=== PATIENT | female | born 1995 | race Caucasian/White ===

== ENCOUNTER → 2016-08-06 | Outpatient (CLI) | payer OTHER ==
[2016-08-06 13:06] LABS: CHLAM PCR DETECTED (NOT DETECT)
== END ==
LOC: LAB 11:18
PROVIDERS: ATTEND Nurse Practitioner Acute Care
DX: N89.8 Other specified noninflammatory disorders of vagina (principal)
CPT/HCPCS: 87210; 87491; 87591

== ENCOUNTER → 2017-04-03 | Outpatient (CLI) | payer SELFPAY ==
[2017-04-03 12:17] LABS: CHLAM PCR DETECTED (NOT DETECT)
== END ==
LOC: LAB 10:32
PROVIDERS: ATTEND Nurse Practitioner Acute Care
DX: R30.0 Dysuria (principal)
CPT/HCPCS: 87210; 87491; 87591

== ENCOUNTER → 2017-11-16 | Outpatient (CLI) | payer OTHER ==
[2017-11-16 11:58] LABS: RBCS (WET MOUNT) NO RBCS SEEN; T.VAGINALIS (WET MOUNT) NO TRICHOMONAS SEEN; WBCS (WET MOUNT) RARE WBCS SEEN; YEAST (WET MOUNT) BUDDING YEAST SEEN
[2017-11-16 11:59] LABS: EPITHELIALS (WET MOUNT) 3+ EPITHELIALS SEEN
[2017-11-16 13:25] LABS: CHLAM PCR NOT DETECTED (NOT DETECT); GON PCR NOT DETECTED (NOT DETECT)
== END ==
LOC: LAB 11:42
PROVIDERS: ATTEND Nurse Practitioner Family
DX: R30.0 Dysuria (principal); Z20.2 Contact with and (suspected) exposure to infections with a predominantly sexual mode of transmission
CPT/HCPCS: 87086; 87088; 87210; 87250; 87491; 87591

== ENCOUNTER 2020-01-03 08:59 | Emergency (ER) | payer SELFPAY ==
[2020-01-03] MEDS ORDERED: LOPERAMIDE HCL 2 MG CAPSULE PO ONE (09:41)
[2020-01-03] MEDS ORDERED: CLONIDINE HCL 0.1 MG TABLET PO ONE (09:41)
[2020-01-03] MEDS ORDERED: ONDANSETRON 4 MG TAB.RAPDIS PO ONE (09:41)
[2020-01-03 09:48] LABS: ABSOLUTE LYMPHOCYTES (AUTO) 0.8 10^3/uL (0.5-4.7); ABSOLUTE MONOCYTES (AUTO) 1.3 10^3/uL (0.1-1.4); ABSOLUTE NEUT (AUTO) 5.2 10^3/uL (1.7-8.2); BASOPHILS % (AUTO) 0.4 % (0-2); HEMATOCRIT 45.8 % (36.0-47.0); HEMOGLOBIN 15.6 g/dL (12.0-15.5); LYMPHOCYTES % (AUTO) 11.3 % (13-45); MEAN CORPUSCULAR HGB CONC 34.1 g/dL (32.0-36.0); MEAN CORPUSCULAR VOLUME 91 fl (80-97); MONOCYTES % (AUTO) 17.4 % (3-13); PLATELET COUNT 201 10^3/uL (150-450); RED BLOOD COUNT 5.03 10^6/uL (3.72-5.28); SEGMENTED NEUTROPHILS % (AUTO) 70.9 % (42-78); TOTAL CELLS COUNTED % (AUTO) 100 %; WHITE BLOOD COUNT 7.4 10^3/uL (4.0-10.5)
[2020-01-03 09:55] LABS: APPEARANCE,URINE CLOUDY; BILIRUBIN,URINE NEGATIVE (NEGATIVE); COLOR,URINE AMBER; GLUCOSE, URINE NEGATIVE (NEGATIVE); KETONES,URINE TRACE mg/dL (NEGATIVE); LEUKOCYTE ESTERASE,URINE NEGATIVE (NEGATIVE); NITRITE,URINE POSITIVE (NEGATIVE); PROTEIN,URINE 100 mg/dL (NEGATIVE); URINE SPECIFIC GRAVITY 1.028
--- NOTE | 2020-01-03 10:02 | ER Document Report ---
ED General - General Chief Complaint: Other Stated Complaint: URINARY ISSUE Time Seen by Provider: 01/03/20 09:28 Primary Care Provider: RITA ALSTON FNP-C [Primary Care Provider] - Follow up as needed Notes: 24-year-old female presents with 2 issues, the first is urinary frequency urgency and pain suprapubic for about 2 to 3 days coupled with some painful lesions on her external vaginal area. Her boyfriend had stomatitis finally diagnosed after having lesions on his mouth for several days and they have been sexually active. She does not have a fever or nausea or vomiting. She does feel generally ill sick with muscle aches and nausea after stopping snorting heroin 3 days ago. TRAVEL OUTSIDE OF THE [place] IN LAST 30 DAYS: No - Related Data Allergies/Adverse Reactions: No Known Allergies Allergy (Verified 01/03/20 09:10) Past Medical History - General Information source: Patient - Social History Smoking Status: Never Smoker Frequency of alcohol use: Rare Drug Abuse: Heroin Family History: None Review of Systems - Review of Systems Notes: REVIEW OF SYSTEMS GEN: Malaise ENT: Denies sore throat, nasal discharge, ear pain EYES: Denies blurry vision, eye pain, discharge CV: Denies chest pain, palpitations, edema RESP: Denies cough, shortness of breath, wheezing GI: See HPI MSK: Denies joint pain/swelling, edema, SKIN: Denies rash, skin lesions LYMPH: Denies swollen glands/lymph nodes NEURO: Denies headache, focal weakness or numbness, dizziness PSYCH: Denies depression, suicidal or homicidal ideation PHYSICAL EXAMINATION General: No acute distress, well-nourished Head: Atraumatic, normocephalic ENT: Mouth normal, oropharynx moist, no exudates or tonsillar enlargement Eyes: Conjunctiva normal, pupils equal, lids normal Neck: No JVD, supple, no guarding CVS: Normal rate, regular rhythm, no murmurs Resp: No resp distress, equal and normal breath sounds bilaterally GI: Nondistended, soft, no tenderness to palpation, no rebound or guarding Ext: No deformities, no edema, normal range of motion in upper and lower ext Back: No CVA or midline TTP Skin: No rash, warm Lymphatic: No lymphadeopathy noted Neuro: Awake, alert. Face symmetric. GCS 15. Physical Exam - Vital signs Vitals: Temp Pulse Resp BP Pulse Ox 98.1 F 113 H 16 124/74 96 01/03/20 09:06 01/03/20 09:06 01/03/20 09:06 01/03/20 09:06 01/03/20 09:06 Course - Re-evaluation Re-evalutation: 01/03/20 10:00 UTI plus or minus herpes plus or minus Chlamydia gonorrhea less likely PID We will treat outpatient for both UTI and herpes, rule out , and treat symptoms of very mild opioid withdrawal. 01/03/20 10:55 Urine shows infection. Will treat as above. I have discussed with the patient there likely diagnosis, aftercare plan, follow-up plans and my usual and customary return precautions. They verbalized understanding of this. - Vital Signs Vital signs: Temp Pulse Resp BP Pulse Ox 98.1 F 113 H 16 124/74 96 01/03/20 09:06 01/03/20 09:06 01/03/20 09:06 01/03/20 09:06 01/03/20 09:06 - Laboratory Result Diagrams: 01/03/20 09:25 01/03/20 09:25 Laboratory results interpreted by me: 01/03/20 01/03/20 09:25 09:25 Hgb 15.6 H Lymph % (Auto) 11.3 L [place] % (Auto) 17.4 H Urine Protein 100 H Urine Ketones TRACE H Urine Blood MODERATE H Urine Nitrite POSITIVE H Urine Urobilinogen 4.0 H Discharge - Discharge Clinical Impression: Opioid withdrawal, Cystitis without hematuria Genital herpes Qualifiers: Herpes simplex infection site: unspecified Qualified Code(s): A60.00 - Herpesviral infection of urogenital system, unspecified Condition: Good Disposition: HOME, SELF-CARE Instructions: Acyclovir ([facility]), Drug Effects ([facility]), Genital Herpes ([facility]) Prescriptions: Nitrofurantoin Monohyd/M-Cryst [Macrobid 100 mg Capsule] 100 mg PO BID #10 cap Valacyclovir HCl [Valtrex 500 Mg Tablet] 500 mg PO BID #20 tablet Referrals: RITA ALSTON FNP-C [Primary Care Provider] - Follow up as needed
[2020-01-03 10:13] LABS: ALBUMIN 4.6 g/dL (3.5-5.0); ALKALINE PHOSPHATASE 62 U/L (38-126); ANION GAP 16 (5-19); ASPARTATE AMINO TRANSFERASE 26 U/L (14-36); BILIRUBIN,DIRECT 0.2 mg/dL (0.0-0.4); BILIRUBIN,TOTAL 0.7 mg/dL (0.2-1.3); BLOOD UREA NITROGEN 11 mg/dL (7-20); CALCIUM 9.5 mg/dL (8.4-10.2); CARBON DIOXIDE 22 mmol/L (22-30); CHLORIDE 100 mmol/L (98-107); GLUCOSE 106 mg/dL (75-110); POTASSIUM 4.8 mmol/L (3.6-5.0); TOTAL PROTEIN 7.5 g/dL (6.3-8.2)
[2020-01-03 10:59] VITALS: BP 120/72
== END 2020-01-03 10:58 | disposition home or self-care (01) ==
LOC: ER 08:59
DX: N30.90 Cystitis, unspecified without hematuria (principal); A60.00 Herpesviral infection of urogenital system, unspecified; F11.23 Opioid dependence with withdrawal
CPT/HCPCS: 99283; 36415; 83690; 85025; 80053; 81001; S0119

== ENCOUNTER 2020-01-06 15:56 | Emergency (ER) | payer SELFPAY ==
--- NOTE | 2020-01-06 16:17 | ER Document Report ---
ED Medical Screen (RME) - General Chief Complaint: Chest Pain Stated Complaint: DIZZINESS Time Seen by Provider: 01/06/20 16:04 Primary Care Provider: RITA ALSTON FNP-C [Primary Care Provider] - Follow up as needed Mode of Arrival: Wheelchair Information source: Patient Notes: 24-year-old female presented to ED for feeling very lightheaded and dizzy. She states she has a heroin addiction has not used any heroin in 6 days. 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 She states she was walking when she became very dizzy with her hands and feet becoming numb. She states she has not eaten much of anything in the last 6 days since she was in the emergency room last time. She states every time she eats makes her nauseated makes her chest feel like it hurts. She says she does not use any other drugs does not smoke or use any alcohol. She states she has been taking her Macrodantin and her acyclovir for her UTI and genital herpes. I have greeted and performed a rapid initial assessment of this patient. A comprehensive ED assessment and evaluation of the patient, analysis of test results and completion of medical decision making process will be conducted by an additional ED providers. TRAVEL OUTSIDE OF THE [place] IN LAST 30 DAYS: No - Related Data Allergies/Adverse Reactions: No Known Allergies Allergy (Verified 01/03/20 09:10) Doctor's Discharge - Discharge Referrals: RITA ALSTON FNP-C [Primary Care Provider] - Follow up as needed
[2020-01-06] MEDS: NORMAL SALINE 1000 ML 1,000 ML IV PRN ×2 (16:29→17:15)
--- NOTE | 2020-01-06 16:54 | RADIOLOGY REPORT (SQ) ---
EXAM DESCRIPTION: CHEST 2 VIEWS IMAGES COMPLETED DATE/TIME: 01/06/2020 4:44 pm REASON FOR STUDY: Chest pain with food COMPARISON: None. EXAM PARAMETERS: NUMBER OF VIEWS: Two views. TECHNIQUE: PA and lateral views of the chest were obtained. RADIATION DOSE: NA LIMITATIONS: None. FINDINGS: LUNGS AND PLEURA: No consolidation, pleural effusion or pneumothorax. MEDIASTINUM AND HILAR STRUCTURES: No mediastinal or hilar contour abnormality. HEART AND VASCULAR STRUCTURES: The cardiac silhouette and pulmonary vasculature are within normal dean its. BONES: No acute findings. HARDWARE: None in the chest. OTHER: No other finding. IMPRESSION: No acute cardiopulmonary process. TECHNICAL DOCUMENTATION: JOB ID: [id number] 2010 [employer]- All Rights Reserved Reading location - IP/workstation name: [email or web address]
[2020-01-06 16:56] LABS: ABSOLUTE EOSINOPHILS # (AUTO) 0.1 10^3/uL (0.0-0.6); ABSOLUTE LYMPHOCYTES (AUTO) 2.4 10^3/uL (0.5-4.7); ABSOLUTE MONOCYTES (AUTO) 0.8 10^3/uL (0.1-1.4); ABSOLUTE NEUT (AUTO) 3.9 10^3/uL (1.7-8.2); ALBUMIN 4.5 g/dL (3.5-5.0); ALKALINE PHOSPHATASE 69 U/L (38-126); ANION GAP 17 (5-19); ASPARTATE AMINO TRANSFERASE 23 U/L (14-36); BASOPHILS % (AUTO) 0.5 % (0-2); BLOOD UREA NITROGEN 13 mg/dL (7-20); CARBON DIOXIDE 18 mmol/L (22-30); CHLORIDE 104 mmol/L (98-107); CREATINE KINASE 43 U/L (30-135); EOSINOPHILS % (AUTO) 0.7 % (0-6); GLUCOSE 91 mg/dL (75-110); HEMATOCRIT 45.3 % (36.0-47.0); HEMOGLOBIN 15.6 g/dL (12.0-15.5); LYMPHOCYTES % (AUTO) 33.3 % (13-45); MEAN CORPUSCULAR HEMOGLOBIN 30.7 pg (27.0-33.4); MEAN CORPUSCULAR HGB CONC 34.4 g/dL (32.0-36.0); MEAN CORPUSCULAR VOLUME 89 fl (80-97); MONOCYTES % (AUTO) 11.4 % (3-13); PLATELET COUNT 213 10^3/uL (150-450); POTASSIUM 3.8 mmol/L (3.6-5.0); RED BLOOD COUNT 5.09 10^6/uL (3.72-5.28); SEGMENTED NEUTROPHILS % (AUTO) 54.1 % (42-78); TOTAL CELLS COUNTED % (AUTO) 100 %; TOTAL PROTEIN 7.8 g/dL (6.3-8.2); WHITE BLOOD COUNT 7.2 10^3/uL (4.0-10.5)
[2020-01-06] MEDS ORDERED: MAG HYDROX/AL HYDROX/SIMETH SUSP 30 ML UDCUP PO ONE (18:58)
[2020-01-06] MEDS ORDERED: METOCLOPRAMIDE HCL ORAL SOLN 10 MG/10 ML UDCUP PO ONE (18:58)
[2020-01-06] MEDS ORDERED: LIDOCAINE 2% VISCOUS SOLN 15 ML UDCUP PO ONE (18:58)
--- NOTE | 2020-01-06 19:05 | ER Document Report ---
ED General - General Chief Complaint: Chest Pain Stated Complaint: DIZZINESS Time Seen by Provider: 01/06/20 16:04 Primary Care Provider: RITA ALSTON FNP-C [NURSE PRACTITIONER] - Follow up as needed Mode of Arrival: Wheelchair Notes: CHIEF COMPLAINT: Indigestion, abdominal and chest discomfort, heroin withdrawal HPI: 24-year-old female presenting with multiple complaints. Patient states that she believes she was withdrawing from heroin, last used 6 days ago. Developed some epigastric abdominal pain with indigestion and chest discomfort especially with eating and drinking. No significant chest pain without eating and drinking. States she has not eaten a lot in the last 6 days because she has not felt well. Patient has some dizziness and lightheadedness which she attributes to not eating over the last several days and being dehydrated. ROS: See HPI - all other systems were reviewed and are otherwise negative Constitutional: no fever Eyes: no drainage, no blurred vision ENT: no runny nose, no sore throat Cardiovascular: + chest pain Resp: no SOB, no cough GI: no vomiting, no diarrhea, + abdominal pain : no dysuria Integumentary: no rash Allergy: no hives Musculoskeletal: no extremity pain or swelling Neurological: no numbness/tingling, no weakness, positive dizziness MEDICATIONS: I agree with the patient medications as charted by the RN. ALLERGIES: I agree with the allergies as charted by the RN. PAST MEDICAL HISTORY/PAST SURGICAL HISTORY: Reviewed and agree as charted by RN. SOCIAL HISTORY: Reviewed and agree as charted by RN. FAMILY HISTORY: No significant familial comorbid conditions directly related to patient complaint EXAM: Reviewed vital signs as charted by RN. CONSTITUTIONAL: Alert and oriented and responds appropriately to questions. Well-appearing; well-nourished HEAD: Normocephalic; atraumatic EYES: PERRL; Conjunctivae clear, sclerae non-icteric ENT: normal nose; no rhinorrhea; moist mucous membranes; pharynx without lesions noted, no uvula edema or deviation, no tonsillar hypertrophy, phonation normal NECK: Supple without meningismus; non-tender; no cervical lymphadenopathy, no masses CARD: RRR; no murmurs, no clicks, no rubs, no gallops; symmetric distal pulses RESP: Normal chest excursion without splinting or tachypnea; breath sounds clear and equal bilaterally; no wheezes, no rhonchi, no rales, pulse oximetry 99% on room air not hypoxic ABD/GI: Normal bowel sounds; non-distended; soft, mild epigastric tenderness on palpation. no rebound, no guarding; no palpable organomegaly or masses. BACK: The back appears normal and is non-tender to palpation, there is no CVA tenderness EXT: Normal ROM in all joints; non-tender to palpation; no cyanosis, no effusions, no edema SKIN: Normal color for age and race; warm; dry; good turgor; no acute lesions noted NEURO: Moves all extremities equally; Motor and sensory function intact PSYCH: The patient's mood and manner are appropriate. Grooming and personal hygiene are appropriate. MDM: 24-year-old female presenting for indigestion, dehydration after withdrawin g from heroin over the last 6 days. Patient lab work drawn via triage process does not show acute emergent abnormalities. Awaiting urinalysis and drug screen. Patient has received 2 bags of IV fluids. She feels much better at this time still complaining of some indigestion upper abdomen into the chest. Will give GI cocktail. Low suspicion for ACS as patient's pain is specific to eating and drinking. EKG sinus rhythm with a ventricular rate of 93, KS 132, QT 372. No other ectopy. reviewed by ER attending MD TRAVEL OUTSIDE OF THE [place] IN LAST 30 DAYS: No - Related Data Allergies/Adverse Reactions: No Known Allergies Allergy (Verified 01/03/20 09:10) Past Medical History - General Information source: Patient - Social History Smoking Status: Never Smoker Chew tobacco use (# tins/day): No Frequency of alcohol use: None Drug Abuse: None Family History: None Physical Exam - Vital signs Vitals: Temp Pulse Resp BP Pulse Ox 97.8 F 105 H 20 113/72 100 01/06/20 16:14 01/06/20 16:14 01/06/20 16:14 01/06/20 16:14 01/06/20 16:14 Course - Re-evaluation Re-evalutation: 01/06/20 19:40 Patient is noted to have urinary tract infection but she is already on Macrobid for this. She has been on the Macrobid for 3 days still with positive nitrites and significant leukocytosis in the urine. We will switch her to Keflex - Vital Signs Vital signs: Temp Pulse Resp BP Pulse Ox 97.8 F 105 H 20 113/72 100 01/06/20 16:14 01/06/20 16:14 01/06/20 16:14 01/06/20 16:14 01/06/20 16:14 - Laboratory Result Diagrams: 01/06/20 16:20 01/06/20 16:20 Laboratory results interpreted by me: 01/06/20 01/06/20 01/06/20 16:20 16:20 19:00 Hgb 15.6 H Carbon Dioxide 18 L Urine Protein 100 H Urine Ketones 20 H Urine Blood LARGE H Urine Nitrite POSITIVE H Urine Urobilinogen 4.0 H Discharge - Discharge Clinical Impression: Heroin withdrawal, Dehydration Gastritis Qualifiers: Gastritis type: other gastritis Chronicity: acute Gastritis bleeding: presence of bleeding unspecified Qualified Code(s): K29.00 - Acute gastritis without bleeding UTI (urinary tract infection) Qualifiers: Urinary tract infection type: acute cystitis Hematuria presence: with hematuria Qualified Code(s): N30.01 - Acute cystitis with hematuria Condition: Stable Disposition: HOME, SELF-CARE Additional Instructions: Avoid drug use and make sure you are eating food. Take the Carafate as prescribed. Follow-up with primary care for reevaluation of symptoms. Prescriptions: Sucralfate [Carafate 1 gm Tablet] 1 gm PO ACHS #120 tablet Cephalexin Monohydrate [Keflex 500 mg Capsule] 500 mg PO Q6H 7 Days #28 capsule Referrals: REYNA YARBROUGH DO [NO LOCAL MD] - Follow up as needed
[2020-01-06 19:37] LABS: APPEARANCE,URINE SLIGHTLY-CLOUDY; BILIRUBIN,URINE NEGATIVE (NEGATIVE); GLUCOSE, URINE NEGATIVE (NEGATIVE); KETONES,URINE 20 mg/dL (NEGATIVE); LEUKOCYTE ESTERASE,URINE NEGATIVE (NEGATIVE); NITRITE,URINE POSITIVE (NEGATIVE); PROTEIN,URINE 100 mg/dL (NEGATIVE); URINE SPECIFIC GRAVITY 1.028
[2020-01-06 19:38] LABS: COLOR,URINE DARK YELLOW
[2020-01-06] MEDS ORDERED: CEPHALEXIN 500 MG CAPSULE PO ONE (19:43)
[2020-01-06 19:57] LABS: URINE AMPHETAMINES SCREEN NEGATIVE; URINE BARBITURATES SCREEN NEGATIVE; URINE BENZODIAZEPINES SCREEN NEGATIVE; URINE COCAINE SCREEN NEGATIVE; URINE METHADONE SCREEN NEGATIVE; URINE PHENCYCLIDINE SCREEN NEGATIVE
[2020-01-06 19:58] LABS: URINE MARIJUANA (THC) SCREEN UNCONFIRMED POSITIVE
[2020-01-06 20:12] VITALS: BP 113/77
--- NOTE | 2020-01-06 23:37 | EKG REPORT ---
SEVERITY:- NORMAL ECG - SINUS RHYTHM : Confirmed by: Gabriella Lamas MD 06-Jan-2020 23:36:26
== END 2020-01-06 20:10 | disposition home or self-care (01) ==
LOC: ER 15:56
DX: K29.00 Acute gastritis without bleeding (principal); N30.01 Acute cystitis with hematuria; F11.23 Opioid dependence with withdrawal; E86.0 Dehydration; K30 Functional dyspepsia; R07.9 Chest pain, unspecified; R42 Dizziness and giddiness
CPT/HCPCS: 93005; 99285; 96360; 36415; 82550; 84703; 85025; 80053; 81001; 80307; 71046; 93010; J3490; J7030

== ENCOUNTER 2020-03-13 19:29 | Emergency (ER) | payer SELFPAY ==
[2020-03-13 19:41] VITALS: BP 131/55
--- NOTE | 2020-03-13 20:18 | ER Document Report ---
HPI - HPI Patient complains to provider of: Note for work Time Seen by Provider: 03/13/20 20:06 Onset: This afternoon Quality of pain: No pain Pain Level: Denies Context: Patient states that she had a frontal headache earlier this afternoon and left work. Patient states her employer requires a note prior to being able to return to work. Patient states that she went home took a nap and the headache resolved. Patient denies taking any medications to resolve her headache. Patient denies any cold symptoms. Patient denies any fever. Patient denies any concerns about Covid. Associated Symptoms: Headache - Now gone. denies: Nausea, Vomiting Exacerbated by: Denies Relieved by: Denies Similar symptoms previously: Yes Recently seen / treated by doctor: No - ROS ROS below otherwise negative: Yes Systems Reviewed and Negative: Yes All other systems reviewed and negative - CONSTITUTIONAL Constitutional: DENIES: Fever, Chills - NEURO Neurology: REPORTS: Headache - RESPIRATORY Respiratory: DENIES: Coughing - GASTROINTESTINAL Gastrointestinal: DENIES: Nausea, Patient vomiting - REPRODUCTIVE LMP: 02/28/20 Reproductive: DENIES: : - DERM Skin Color: Normal Skin Problems: None Past Medical History - General Information source: Patient - Social History Smoking Status: Never Smoker Frequency of alcohol use: None Drug Abuse: None Occupation: [employer] Family History: None - Medical History Medical History: Negative Surgical Hx: Negative Vertical Provider Document - CONSTITUTIONAL Agree With Documented VS: Yes Exam Limitations: No Limitations General Appearance: WD/WN, No Apparent Distress - INFECTION CONTROL TRAVEL OUTSIDE OF THE [place] IN LAST 30 DAYS: No - HEENT HEENT: Atraumatic, Normal ENT Exam, Normocephalic - NECK Neck: Normal Inspection, Supple. negative: Lymphadenopathy-Left, Lymphadenop athy-Right Notes: No meningismus - RESPIRATORY Respiratory: Breath Sounds Normal, No Respiratory Distress - CARDIOVASCULAR Cardiovascular: Regular Rate, Regular Rhythm - BACK Back: Normal Inspection Notes: No spinal midline tenderness - MUSCULOSKELETAL/EXTREMETIES Musculoskeletal/Extremeties: JOSE FRANCOIS - NEURO Level of Consciousness: Awake, Alert, Appropriate Motor/Sensory: No Motor Deficit - DERM Integumentary: Warm, Dry, No Rash Course - Re-evaluation Re-evalutation: 03/13/20 20:27 Patient reports headache pain resolved without any intervention and was only for a few hours. Patient states headache is typical of headaches that she has had in the past. Patient denies any concerns about possible Covid. - Vital Signs Vital signs: Temp Pulse Resp BP Pulse Ox 99.1 F 79 15 131/55 H 100 03/13/20 19:39 03/13/20 19:39 03/13/20 19:39 03/13/20 19:39 03/13/20 19:39 Discharge - Discharge Clinical Impression: Headache Qualifiers: Headache type: unspecified Headache chronicity pattern: unspecified pattern Intractability: not intractable Qualified Code(s): R51.9 - Headache, unspecified Condition: Stable Disposition: HOME, SELF-CARE Instructions: Headache ([facility]) Additional Instructions: Return immediately for any new or worsening symptoms Followup with your primary care provider, call tomorrow to make a followup appointment Forms: Return to Work Referrals: [facility] [Provider Group] - Follow up as needed
== END 2020-03-13 20:20 | disposition home or self-care (01) ==
LOC: ER 19:29
DX: R51.9 Headache, unspecified (principal)
CPT/HCPCS: 99281